=== PATIENT | female | born 1950 | race Caucasian/White ===

== ENCOUNTER 2018-01-19 07:15 | Inpatient (IN) | payer OTHER ==
[2018-01-19] MEDS ORDERED: GABAPENTIN 300 MG CAP PO ONE (09:45)
[2018-01-19] MEDS ORDERED: morphINE SR 15 MG TAB PO ONE (09:45)
[2018-01-19] MEDS ORDERED: ACETAMINOPHEN 500 MG TAB PO ONE (09:45)
[2018-01-19] MEDS ORDERED: LIDOCAINE 1% 2 ML INJ ID PRN (09:47)
[2018-01-19] MEDS ORDERED: LR 1,000 ML IV ONE (09:47)
[2018-01-19] MEDS ORDERED: ceFAZolin 2 GM/DEXTROSE 100 ML IV ONE (10:00)
[2018-01-19] MEDS ORDERED: morphINE PF 0.2 MG in SYRINGE INTRATHECAL 1 SYR IT ONE (10:00)
--- NOTE | 2018-01-19 10:58 | PDHPUP ---
History & Physical Update H&P update statement: This history and physical update is based on an assessment of the patient which was completed after admission or registration (within 24 hours), but prior to the surgery/procedure. H&P update: H&P reviewed & patient examined, no change in patient's condition since H&P completed (Consents signed and site marked. All questions answered. )
[2018-01-19] MEDS ORDERED: MIDAZOLAM 2 MG/2 ML VIAL IVP ONE (11:26)
--- NOTE | 2018-01-19 11:26 | PDANEPAE ---
ANE History of Present Illness lumbar tlif ANE Past Medical History - Cardiovascular History Hx Hypertension: No Hx Arrhythmias: No Hx Chest Pain: No Hx Coronary Artery / Peripheral Vascular Disease: No Hx CHF / Valvular Disease: No Hx Palpitations: No - Pulmonary History Hx COPD: No Hx Asthma/Reactive Airway Disease: No Hx Recent Upper Respiratory Infection: No Hx Oxygen in Use at Home: No Hx Sleep Apnea: No Sleep Apnea Screening Result - Last Documented: Negative - Neurologic History Hx Cerebrovascular Accident: No Hx Seizures: No Hx Dementia: No - Endocrine History Hx Diabetes: No Hypothyroid: No Hyperthyroid: No - Renal History Hx Renal Disorders: No - Liver History Hx Hepatic Disorders: No - Neurological & Psychiatric Hx Hx Neurological and Psychiatric Disorders: Yes Neurological / Psychiatric History Comment: nack pain numbness and tingling to inner aspects on thighs and legs - Cancer History Hx Cancer: Yes Cancer History Comment: melanoma - Congenital Disorder History Hx Congenital Disorders: No - GI History Hx Gastrointestinal Disorders: Yes Gastrointestinal History Comment: diverticulosis - Other Health History Other Health History: none - Chronic Pain History Chronic Pain: No - Surgical History Prior Surgeries: melanoma surgery. 2 c -sections ANE Review of Systems Review of Systems: - Exercise capacity Exercise capacity: >=4 METS METS (RN): 5 METS ANE Patient History - Allergies Allergies/Adverse Reactions: meperidine [From Demerol] Allergy (Verified 01/13/18 11:40) Other-Enter Comments - Home Medications Home Medications: NK [No Known Home Meds] 01/06/18 [Last Taken Unknown] - NPO status NPO Status: no food or drink >8 hours NPO Since - Liquids (Date): 01/18/18 NPO Since - Liquids (Time): 22:00 NPO Since - Solids (Date): 01/18/18 NPO Since - Solids (Time): 19:30 - Anes Hx Anes Hx: no prior problems - Smoking Hx Smoking Status: Former smoker - Family Anes Hx Family Hx Anesthesia Complications: none ANE Labs/Vital Signs - Vital Signs Blood Pressure: 161/87 Heart Rate: 66 Respiratory Rate: 16 O2 Sat (%): 97 Height: 160.02 cm Weight: 65.771 kg ANE Physical Exam - Airway Mallampati Score: Class 2 Mouth exam: normal dental/mouth exam - Pulmonary Pulmonary: no respiratory distress - Cardiovascular Cardiovascular: regular rate and rhythym - ASA Status ASA Status: I ANE Anesthesia Plan Anesthesia Plan: general endotracheal anesthesia
[2018-01-19] MEDS ORDERED: THROMBIN (BOVINE) 20,000 UNIT VIAL TP ONE ×2 (11:27→11:30)
[2018-01-19] MEDS ORDERED: BUPIVACAINE 0.25% 30 ML SDV ONE ×2 (11:28→11:35)
[2018-01-19] MEDS ORDERED: CHLORHEXIDINE GLUC HIBICLENS 118 ML BTL TP ONE (11:30)
[2018-01-19] MEDS ORDERED: CITRATE DEXTROSE SOLN 500 ML BAG ONE (11:32)
[2018-01-19] MEDS ORDERED: EPINEPHrine 1 MG/ML INJ ONE (11:34)
[2018-01-19] MEDS ORDERED: ROCURONIUM 50 MG/5 ML VIAL ONE ×2 (11:43→12:26)
[2018-01-19] MEDS ORDERED: ONDANSETRON 4 MG/2 ML VIAL ONE (11:43)
[2018-01-19] MEDS ORDERED: HYDROmorphONE/DILAUDID 2 MG/ML INJ ONE (11:43)
[2018-01-19] MEDS ORDERED: DEXAMETHASONE 4 MG/ML VIAL ONE (11:43)
[2018-01-19] MEDS ORDERED: PROPOFOL/EMULSION 500 MG/50 ML BOTTLE IV ONE ×2 (11:43→14:02)
[2018-01-19] MEDS ORDERED: REMIFENTANIL HCL 1 MG VIAL ONE (12:34)
[2018-01-19] MEDS: BACITRACIN 50,000 UNITS/10 ML SYR IRR ONE ×2 (15:02→15:03)
[2018-01-19] MEDS ORDERED: HYDROmorphONE/DILAUDID 1 MG/ML INJ IVP PRN ×2 (15:27→16:29)
[2018-01-19] MEDS ORDERED: oxyCODONE IR 5 MG TAB PO PRN (15:27)
[2018-01-19] MEDS ORDERED: ACETAMINOPHEN 500 MG TAB PO PRN (15:27)
[2018-01-19] MEDS ORDERED: PHENYLEPHRINE HCL 100 MCG/ML SYR IVP PRN (15:27)
[2018-01-19] MEDS ORDERED: PROMETHAZINE HCL 25 MG/ML INJ IVP PRN ×2 (15:27→16:29)
[2018-01-19] MEDS ORDERED: METOCLOPRAMIDE 10 MG/2 ML VIAL IVP PRN (15:27)
[2018-01-19] MEDS ORDERED: DIAZEPAM 5 MG/ML 1 ML SYR IVP PRN (15:27)
[2018-01-19] MEDS ORDERED: NALOXONE HCL 0.4 MG/ML INJ IVP PRN (15:27)
[2018-01-19] MEDS ORDERED: ONDANSETRON 4 MG/2 ML VIAL IVP PRN ×2 (15:27→16:29)
[2018-01-19] MEDS ORDERED: LABETALOL HCL 5 MG/ML 20 ML MDV IVP PRN (15:27)
[2018-01-19] MEDS ORDERED: fentaNYL 100 MCG/2 ML INJ IVP PRN (15:27)
[2018-01-19] MEDS ORDERED: HYDROCODONE/APAP 5/325 TAB PO PRN ×2 (15:27→23:47)
[2018-01-19] MEDS ORDERED: ALBUTEROL 3 ML DEYVIAL IH PRN (15:27)
--- NOTE | 2018-01-19 15:29 | POSTANESTH ---
Post Anesthetic Evaluation Cardiovascular Status: Normal, Stable Respiratory Status: Normal, Stable Level of Consciousness/Mental Status: Can Participate in Eval, Mildly Sleepy, Arousable Pain Control: Adequate, Prn Tx Ordered Nausea/Vomiting Control: Adequate, Prn Tx Ordered Complications Possibly Related to Anesthesia: None Noted
[2018-01-19] MEDS ORDERED: ceFAZolin 1 GM VIAL ONE (15:42)
[2018-01-19] MEDS ORDERED: BACITRACIN ZINC 14.2 GM OINTTUBE TP ONE (15:50)
[2018-01-19] MEDS ORDERED: BISACODYL 10 MG SUPP PR PRN (16:29)
[2018-01-19] MEDS ORDERED: MAGNESIUM HYDROXIDE 30 ML UDCUP PO PRN (16:29)
[2018-01-19] MEDS ORDERED: POLYETHYLENE GLYCOL 3350 17 GM PKT PO PRN (16:29)
[2018-01-19] MEDS ORDERED: ONDANSETRON DISINTEGRATING 4 MG TAB PO PRN (16:29)
[2018-01-19] MEDS ORDERED: diphenhydrAMINE 25 MG CAP PO PRN (16:29)
[2018-01-19] MEDS ORDERED: LACTULOSE 20 GM/30 ML UDCUP PO PRN (16:29)
[2018-01-19] MEDS ORDERED: NS 1,000 ML IV SCH (16:30)
--- NOTE | 2018-01-19 16:38 | POSTOPPROG ---
Post Op Note Date of Operation: 01/19/18 Surgeon: Miranda Rich Steam Roller Operator: Kwaku Rich PA-C Anesthesiologist: Madison Anesthesia: GET(General Endotracheal) Pre-op Diagnosis: lumbar stenosis Post-op Diagnosis: same Indication: nerve compression Procedure: L3-5 laminectomy, TLIF, PSF Findings: Please see dictation Inf/Abcess present in the surg proc area at time of surgery?: No Depth: Organ Space EBL: 100-500 Complications: CSF leak - repaired primarily Drains: Aurelio Bearden Specimen(s): none PA Addendum - Addendum .: S: Pt awake in PACU, denies pain/numbness/tingling O: AAOx3 NAD VSS MAEx4 Motor 5/5 BUE/BLE with exception of right EHL 5-/5 +LT Incision dressed cdi JPx1 Canela A: 67 yo F s/p L3-5 laminectomy, TLIF, PSF - CSF leak repaired primarily P: HOB flat until Thursday AM, ok to roll side to side, no reverse T Stool softeners Post op xrays once ambulatory wear brace when OOB once ambulatory Pain management TEDs, SCDs, lovenox POD#1 Call NS with any issues D/w Dr Carmen
--- NOTE | 2018-01-19 17:13 | GOP ---
[f rep st] OPERATIVE REPORT DATE OF OPERATION: 01/19/2018 SURGEON: Duglas Carmen MD SUPERVISOR SALVAGE: MAGGIE Chambers PREOPERATIVE DIAGNOSIS: 1. L3 through L5 lumbar spondylosis with severe spinal stenosis. 2. Radiculopathy. 3. Treatment refractory to nonoperative intervention. POSTOPERATIVE DIAGNOSIS: 1. L3 through L5 lumbar spondylosis with severe spinal stenosis. 2. Radiculopathy. 3. Treatment refractory to nonoperative intervention. PROCEDURE PERFORMED: 1. Posterior arthrodesis with approach to L3, L4, and L5. 2. Posterolateral fusion with bilateral pedicle screw placement at L3, L4, L5 from the [employer] Solera 4.75 system. 3. Decompressive laminectomy with bilateral medial facetectomies, L3-L4, L4-L5. 4. Right-sided L3-4 transforaminal lumbar interbody fusion with a 7 x 28 mm titanium polyetheretherketone elevated cage filled with morselized autograft and allograft. 5. Right-sided L4-L5 transforaminal lumbar interbody fusion with a 7 x 28 mm titanium polyetheretherketone elevated cage filled with morselized autograft and allograft. 6. Posterolateral fusion on the left between L3 and L5 with morselized autograft and allograft. 7. Use of intraoperative 3D Stealth navigation. 8. Use of intraoperative fluoroscopy, less than 1 hour physician time. 9. Use of neuromonitoring. 10. Use of operating microscope. 11. Injection of preservative-free intrathecal narcotics. FINDINGS: per imaging; ligamentum flavum was adherent to the dura in the midline COMPLICATIONS: Small dural tear was achieved in the midline at the L4 level in the midline which was repaired with a primary 5-0 Prolene suture. SPECIMENS: None. INDICATIONS: Ms. Alfaro is a 67-year-old woman who presented to my office with worsening low back pain and lower extremity claudication and radiculopathy mainly in the right leg. She had evidence of spondylosis L3-L4m L4-L5. After discussion of the risks, benefits, and treatment alternatives, we decided to proceed forth with surgery as described above. DESCRIPTION OF PROCEDURE: The patient was brought to the operating theatre and underwent general endotracheal anesthesia without complications. She had Venodynes, NEENA hose, and appropriate lines placed by Anesthesia. She was flipped prone onto a Aurelio table and all bony prominences inspected and padded. A time-out was completed per protocol and she received antibiotics within 1 hour of incision. Using lateral fluoroscopy and spinal needle, we then picked our entry point to the L3 through L5 levels. This was marked in the midline and the incision then infiltrated with Marcaine with epinephrine. The incision was taken down with the scalpel blade, and then using monopolar, taken down in the midline through the lumbodorsal fascia. A subperiosteal dissection was carried out to the transverse processes of L3, L4, and L5 bilaterally with care to preserve the L2- 3 facet joint. Deep retractors were placed to maintain our exposure. We confirmed the level using lateral fluoroscopy. We attached the 3D Stealth navigation clamp to the spinous process of L4 and completed a 3D Stealth navigation spin. Using 3D Stealth navigation, we placed the ferryboat pilot holes for the bilateral pedicle screws in L3, L4, and L5. All holes were manually palpated with no evidence of any cortical breaches. We then placed 6.5 x 50 mm screws bilaterally in L3, L4, L5 from the [employer] 4.75 system. Another 3D Stealth navigation spin demonstrated that the left-sided L5 screw site was long, so we then replaced it with a 6.5 x 40 mm screw. At this point, the microscope was brought into the field to assist with microscopic dissection and to maintain illumination and magnification. Using a combination of the bur tip on the drill bit, Kerrison punches, and Leksell rongeur, we completed decompressive laminectomy with bilateral medial facetectomies, L3-L4 and L4-L5. While completing the ligament resection in the lateral recess, her dura was noted to be adherent to the ligament in the midline. When we pulled the ligament, she developed a small dural tear in the midline at the L4 level. I closed this with a 5-0 Prolene suture primarily. We then Valsalva'd the patient twice to 40 mmHg and held her for 15 seconds each time with no significant evidence of further CSF egress. We then completed an aggressive facetectomy on the right side, L3-L4 and L4-L5. We first moved up to L3-4 where we distracted the disc space and completed a right- sided L3-L4 diskectomy. We prepared the cartilaginous endplates and measured the interbody space. We then placed a 7 x 28 mm titanium PEEK elevate cage filled with morselized autograft and allograft anteriorly and toward the midline. We packed additional morcellized autograft in the disk space for the interbody fusion. We let down the distraction and moved on L4-5 where we distracted the disc space and completed right L4-5 diskectomy. We prepared the cartilaginous endplates and measured the interbody space. We then placed a 7 x 28 mm titanium PEEK elevate cage filled with morselized autograft and allograft anteriorly and toward the midline. We packed additional morcellized autograft in the disk space for the interbody fusion. We then let down the distraction and decorticated the bone on the left side between L3 and L5. The wound was irrigated copiously with bacitracin irrigation. We placed 2 lordotic rods into the heads of the screws between L3 and L5 and secured them down with cap screws which were then tightened per the electrical products engineer's setting. We injected preservative-free intrathecal narcotics. We placed morselized autograft and allograft on the left side between L3 and L5 for the posterolateral fusion. We placed a small layer of Surgicel and DuraSeal over the primary dural repair. A drain was left in the subfascial space and the wound then closed in multiple layers using Vicryl sutures for the deep layers and Dermabond for the skin. The patient's wounds were dressed sterilely. She was then flipped supine onto the transfer cart. She was awakened, extubated, taken to recovery room in stable condition. There were no complications and no noted changes on neuromonitoring throughout the procedure. /[id number]/MODL MTDD
[2018-01-19] MEDS: FAMOTIDINE 20 MG TAB PO SCH (22:40)
[2018-01-19] MEDS: ACETAMINOPHEN 500 MG TAB PO SCH (22:41)
[2018-01-19] MEDS: POLYETHYLENE GLYCOL 3350 17 GM PKT PO SCH (22:41)
[2018-01-19] MEDS: SENNOSIDES/DOCUSATE SODIUM TAB PO SCH (22:45)
[2018-01-19] MEDS ORDERED: DIAZEPAM 5 MG TAB PO PRN (23:47)
[2018-01-19] MEDS ORDERED: DIAZEPAM 10 MG/2 ML SYR IVP PRN (23:48)
[2018-01-20] MEDS ORDERED: DIAZEPAM 5 MG/ML 1 ML SYR IVP PRN
[2018-01-20] MEDS: ceFAZolin 2 GM/DEXTROSE 100 ML IV SCH ×2 (00:16→08:40)
[2018-01-20] MEDS: ACETAMINOPHEN 500 MG TAB PO SCH ×2 (05:18→14:28)
[2018-01-20] MEDS: SENNOSIDES/DOCUSATE SODIUM TAB PO SCH ×2 (08:42→21:46)
[2018-01-20] MEDS: FAMOTIDINE 20 MG TAB PO SCH ×2 (08:42→21:44)
--- NOTE | 2018-01-20 08:46 | GPROG ---
[f rep st] PROGRESS NOTE NEUROSURGICAL PROGRESS NOTE The patient was seen and examined today and is awake and alert and moving all extremities well. Her incision is clean and dry. She will remain flat today and otherwise continue present management. /[id number]/MODL
[2018-01-20] MEDS: METHOCARBAMOL 750 MG TAB PO PRN ×2 (08:47→14:30)
[2018-01-20] MEDS: POLYETHYLENE GLYCOL 3350 17 GM PKT PO SCH ×3 (08:48→21:45)
[2018-01-20] MEDS: oxyCODONE IR 5 MG TAB PO PRN ×3 (11:54→21:48)
--- NOTE | 2018-01-20 16:39 | ASMTCMCOM ---
CM Note CM Note Notes: Pt admitted for planned back surgery secondary to sciatica, and spondylosis with radiculopathy. Pt is and lives with her spouse. She is a esl tutor. No PT/OT evals at this time. Discharge needs remain unclear at this time. CM will continue to follow. Current Discharge Plan: To be determined Date Signed: 01/20/2018 04:38 PM Electronically Signed By:Meryl Sutherland RN
[2018-01-20] MEDS: ENOXAPARIN 40 MG/0.4 ML SYR SC SCH (18:37)
[2018-01-21] MEDS: ACETAMINOPHEN 500 MG TAB PO SCH ×4 (01:14→21:51)
[2018-01-21] MEDS: oxyCODONE IR 5 MG TAB PO PRN ×3 (05:50→21:58)
[2018-01-21] MEDS: POLYETHYLENE GLYCOL 3350 17 GM PKT PO SCH ×3 (08:29→21:52)
[2018-01-21] MEDS: FAMOTIDINE 20 MG TAB PO SCH ×2 (08:29→21:51)
[2018-01-21] MEDS: ENOXAPARIN 40 MG/0.4 ML SYR SC SCH (08:30)
[2018-01-21] MEDS: SENNOSIDES/DOCUSATE SODIUM TAB PO SCH ×2 (08:30→21:51)
--- NOTE | 2018-01-21 08:36 | NEUSURGPN ---
Assessment/Plan: A: 67 yo F s/p L3-5 laminectomy, TLIF, PSF - CSF leak repaired primarily - POD#2 P: HOB flat until Thursday AM, ok to roll side to side, no reverse T. Will raise HOB tomorrow am by 10 deg/hr Stool softeners Post op xrays once ambulatory wear brace when OOB once ambulatory Pain management KALA drain - 500cc overnight. Leave in for now. TEDs, SCDs, on lovenox Call NS with any issues D/w Dr Carmen Subjective: Pt resting in bed, feeling good this am. Thankful surgery is overwith. Objective: AAOx3 NAD VSS MAEx4 Motor 5/5 BLE Incision dressed cdi KALA drain with serosanguineous dc in bulb +LT Urinary Catheter in Place: No Catheter Insertion Date: 01/19/18 - Physician Discussed Patient with : Kermit Neurosurgery Physical Exam - Vitals, I&O, Labs I and O 01/20/18 01/21/18 01/22/18 05:59 05:59 05:59 Intake Total 2735 1600 Output Total 1375 2530 40 Balance 1360 -930 -40 Weight 65.771 kg Intake: Oral (ml) 50 1600 IV Intake (ml) 2685 Output: Urine (ml) 825 2025 Catheter 825 2025 Estimated Blood Loss (ml) 200 KALA Drain Output (ml) 350 505 40 Posterior Back Aurelio 350 505 40 Bearden Other: Intake Quantity Yes Yes Sufficient Vital Signs Temp Pulse Resp BP Pulse Ox 36.8 C 70 18 144/74 H 97 01/21/18 07:55 01/21/18 07:55 01/21/18 07:55 01/21/18 04:00 01/21/18 07:55 ICD10 Worksheet Patient Problems: Problems Problem Status Onset Lumbar stenosis Acute - ICD10 Problem Qualifiers (1) Lumbar stenosis Qualifiers: Neurogenic claudication status: unspecified Qualified Code(s): M48.061 - Spinal stenosis, lumbar region without neurogenic claudication
--- NOTE | 2018-01-21 11:32 | PDMN ---
Medical Necessity Medical necessity: [facility] [place] S820 lumbar fusion- INPT only- TLIF - with L3-5 lami, PSF
[2018-01-22] MEDS: oxyCODONE IR 5 MG TAB PO PRN ×3 (05:50→21:03)
[2018-01-22] MEDS: ACETAMINOPHEN 500 MG TAB PO SCH ×3 (05:52→21:40)
--- NOTE | 2018-01-22 07:39 | NEUSURGPN ---
Assessment/Plan: A: 67 yo F s/p L3-5 laminectomy, TLIF, PSF - CSF leak repaired primarily - POD#3 P: Raise HOB this am by 10 deg/hr, pt tolerating well so far Stool softeners Post op xrays once ambulatory wear brace when OOB once ambulatory Pain management KALA drain - appx 300 cc out, bulb is full. remove today. TEDs, SCDs, on lovenox Call NS with any issues D/w Dr Carmen Subjective: Pt resting in bed, doing well and denies headaches Objective: AAOx3 NAD VSS MAEx4 Motor 5/5 BLE Incision dressed JPx1 +LT Canela Urinary Catheter in Place: Yes Urinary Catheter Indication: Other (Use Comment) (to be removed today) Catheter Insertion Date: 01/19/18 - Physician Discussed Patient with : Kermit Patient Seen by : Kermit Neurosurgery Physical Exam - Vitals, I&O, Labs I and O 01/21/18 01/22/18 01/23/18 05:59 05:59 05:59 Intake Total 1600 1050 Output Total 2530 2035 Balance -930 -985 Intake: Oral (ml) 1600 1050 Output: Urine (ml) 5 1750 Catheter 2024 1750 KALA Drain Output (ml) 505 285 Posterior Back Aurelio 505 285 Bearden Other: Intake Quantity Yes Yes Sufficient Number of Voids Catheter 1 Vital Signs Temp Pulse Resp BP Pulse Ox 36.5 C 68 16 127/60 H 95 01/22/18 00:00 01/22/18 00:00 01/22/18 00:00 01/22/18 00:00 01/22/18 00:00 ICD10 Worksheet Patient Problems: Problems Problem Status Onset Lumbar stenosis Acute - ICD10 Problem Qualifiers (1) Lumbar stenosis Qualifiers: Neurogenic claudication status: unspecified Qualified Code(s): M48.061 - Spinal stenosis, lumbar region without neurogenic claudication
[2018-01-22] MEDS: SENNOSIDES/DOCUSATE SODIUM TAB PO SCH ×2 (09:00→21:02)
[2018-01-22] MEDS: POLYETHYLENE GLYCOL 3350 17 GM PKT PO SCH ×3 (09:00→21:02)
[2018-01-22] MEDS: FAMOTIDINE 20 MG TAB PO SCH ×2 (09:00→21:01)
[2018-01-22] MEDS: ENOXAPARIN 40 MG/0.4 ML SYR SC SCH (09:00)
--- NOTE | 2018-01-22 12:37 | ASMTCMCOM ---
CM Note CM Note Notes: Pt off of bed rest today. PT started eval, pt had headaches and became nauseated. PT now rec home/outpatient. CM to follow pt progress for d/c planning. D/c plan of care: TBD Date Signed: 01/22/2018 12:36 PM Electronically Signed By:ROB Chinchilla
[2018-01-22] MEDS ORDERED: ACET/CAFFEINE/BUTA FIORICET 1 EACH TAB PO PRN (13:46)
[2018-01-22] MEDS ORDERED: NS 500 ML IV ONE (13:46)
[2018-01-23] MEDS: oxyCODONE IR 5 MG TAB PO PRN ×2 (04:57→09:13)
[2018-01-23] MEDS: ACETAMINOPHEN 500 MG TAB PO SCH (04:59)
[2018-01-23 07:12] VITALS: BP 116/71
[2018-01-23] MEDS: SENNOSIDES/DOCUSATE SODIUM TAB PO SCH (07:24)
[2018-01-23] MEDS: ENOXAPARIN 40 MG/0.4 ML SYR SC SCH (07:25)
[2018-01-23] MEDS: FAMOTIDINE 20 MG TAB PO SCH (07:26)
--- NOTE | 2018-01-23 08:14 | NEUSURGPN ---
Date of Surgery: 01/19/18 Post Op Day: 4 Assessment/Plan: Assessment: 67 yo F s/p L3-5 laminectomy, TLIF, PSF - CSF leak repaired primarily - POD #4 Plan: -tolerating upright and walking well. No HAs at all -pt states that she feels good and is happy that she had the surgery -continue with current pain medications -will continue with stool softeners -post op xrays pending -wear brace when OOB once ambulatory -pain management doing well with current pain plan -KALA drain removed -CDI -TEDs, SCDs, on lovenox -call NS with any issues -D/w Dr Carmen and seen by Dr Guadalupe -pt is ready for dc today pending xrays being completed-ERICA Dillard aware Subjective: Awake and alert. NAD. Eating/drinking and voiding. No f/c/n/v/d. No rivera/neck/ chest/abd or gu complaints. Objective: AAOx3,NAD CN 2-12 grossly intact MAEx4 Motor 5/5 BLE Incision dressed KALA site looks good +LT Neuro Check Frequency: per routine Urinary Catheter in Place: No Catheter Insertion Date: 01/19/18 - Physician Discussed Patient with : Collins Patient Seen by : Collins Neurosurgery Physical Exam - Vitals, I&O, Labs I and O 01/22/18 01/23/18 01/24/18 05:59 05:59 05:59 Intake Total 1050 800 Output Total 2035 1245 Balance -985 -445 Intake: Oral (ml) 1050 300 IV Intake (ml) 500 Output: Urine (ml) 1750 1075 Bedside Commode 325 Catheter 1750 750 KALA Drain Output (ml) 285 170 Posterior Back Aurelio 285 170 Bearden Other: Intake Quantity Yes Yes Sufficient Output Comment Catheter Sat on bedside comode but no output Number of Voids Bedside Commode 1 Catheter 1 1 Toilet 1 Number of Stools Bedside Commode 1 Toilet 1 Vital Signs Temp Pulse Resp BP Pulse Ox 37.2 C 77 16 116/71 98 01/23/18 07:11 01/23/18 07:11 01/23/18 07:11 01/23/18 07:11 01/23/18 07:11 ICD10 Worksheet Patient Problems: Problems Problem Status Onset Lumbar stenosis Acute
[2018-01-23] MEDS: POLYETHYLENE GLYCOL 3350 17 GM PKT PO SCH (08:49)
--- NOTE | 2018-01-23 09:06 | ASMTDCNOTE ---
Case Management Discharge Discharge Order Complete? Answers: Yes Patient to Obtain Answers: via Family Medications Transportation Arranged Answers: Family/Friends Discharge Comments Notes: Pt will dc home w/ and will follow up w/out pt PT. Discussed w/RN. No CM needs upon dc. Date Signed: 01/23/2018 09:05 AM Electronically Signed By:Judith Song RN
--- NOTE | 2018-02-03 08:27 | GDS ---
[f rep st] DISCHARGE SUMMARY ADMITTING DIAGNOSIS: Lumbar degenerative disk disease. DISCHARGE DIAGNOSIS: Status post L3-L5 laminectomy with transforaminal lumbar interbody fusion and p osterior fusion. CONSULTS: Physical Therapy, Occupational Therapy, Case Management. DISPOSITION: To home. COMPLICATIONS,: Spinal fluid leak that was repaired primarily. HOSPITAL COURSE: The patient is a 67-year-old female patient who was seen in Dr. Carmen's clinic as an outpatient. She tried and failed conservative management. Imaging demonstrated stenosis L3-L5. After careful consideration and discussion of risks, benefits, and treatment alternatives, the patien t elected to proceed with surgical intervention in the way of an L3-L5 laminectomy with TLIF and post erior fusion. The procedure was performed by Dr. Duglas Carmen. During the procedure, a small dural tear occurred and this was repaired primarily. After the operation, the patient was in stable condi tion and was transferred from the operating room to the PACU and the PACU to the postsurgical floor. The patient was kept flat in bed for several days. This was done to allow the spinal fluid leak to finish healing. On January 22, 2018, the patient's activity was advanced. The head of bed was raised sl owly by approximately 10 degrees per hour and the patient tolerated this well. Her KALA drain was bianca farzaneh. She worked with Physical Therapy and Occupational Therapy and continued to make good progress. Postoperative x-rays demonstrated stable, well placed hardware. On January 23, 2018, the patient's pain was well managed. She was cleared by therapies and she was subsequently discharged. DISPOSITION: To home. DISCHARGE INSTRUCTIONS: 1. Diet as tolerated. 2. Activity: No bending, lifting, or twisting. 3. Patient to wear her brace whenever out of bed. 4. She will monitor her incision for any signs of infection. MEDICATION: Please see the medication reconciliation. FOLLOWUP: The patient has been asked to follow up with Dr. Carmen in the office in approximately 2-3 weeks. We have asked the patient to call sooner with any questions or concerns at [phone]. /[id number]/MODL
== END 2018-01-23 11:04 | disposition home or self-care (01) | DRG 454 ==
LOC: F3N 09:21
PROVIDERS: ADMIT Neurological Surgery; ATTEND Neurological Surgery
DX: M47.26 Other spondylosis with radiculopathy, lumbar region (principal); M43.16 Spondylolisthesis, lumbar region; M48.062 Spinal stenosis, lumbar region with neurogenic claudication; G96.11 Dural tear; K57.92 Diverticulitis of intestine, part unspecified, without perforation or abscess without bleeding; Z85.820 Personal history of malignant melanoma of skin; Z87.891 Personal history of nicotine dependence
CPT/HCPCS: 97161-GP; 97166-GO; 97530-GP; C1713; G8978-GP-CL; G8979-GP-CJ; G8987-GO-CK; G8988-GO-CI; J0171; J0690; J1100; J1170; J1650; J2250; J2274; J2405; J2704; J3360; J7060

== ENCOUNTER → 2018-03-02 | Outpatient (CLI) | payer OTHER | DX: Z98.1 Arthrodesis status (principal) ==

== ENCOUNTER → 2018-04-16 | Outpatient (CLI) | payer OTHER | LOC: FIMAGING 10:21 | PROVIDERS: ATTEND Physician Assistant Surgical | DX: Z09 Encounter for follow-up examination after completed treatment for conditions other than malignant neoplasm (principal); Z98.1 Arthrodesis status ==

== ENCOUNTER → 2018-07-16 | Outpatient (CLI) | payer OTHER | LOC: FIMAGING 11:22 | PROVIDERS: ATTEND Physician Assistant Surgical | DX: Z09 Encounter for follow-up examination after completed treatment for conditions other than malignant neoplasm (principal); Z98.1 Arthrodesis status ==